=== PATIENT | male | born 1980 ===

== ENCOUNTER 2023-01-17 20:57 | Emergency (ER) | payer OTHER, SELFPAY ==
--- NOTE | 2023-01-17 21:00 | RT.EKG_ITS ---
APPROVED REPORT Exam: Resting ECG Reason for Exam: HIGH BP Patient Location: E HR:68 bpm ECG Measurements Heart Rate 68 AXIS AZ 158 P 52 QRSd 101 QRS 29 QT 415 T 14 QTc 440 Conclusion Sinus rhythm...normal P axis, V-rate 60- 99 Physician: no stemi
[2023-01-17 21:12] VITALS: BP 178/98; PULSE 89; RESP 20; TEMP 37.1; O2SAT 98
[2023-01-17] MEDS: Lisinopril 10 MG TAB PO ×2 (21:53→22:20)
[2023-01-17 21:56] VITALS: BP 160/89; PULSE 68; PULSE 69; RESP 23
[2023-01-17 21:57] VITALS: PULSE 67; RESP 21
[2023-01-17 22:00] VITALS: BP 151/89; PULSE 67; PULSE 68; RESP 16
[2023-01-17 22:01] VITALS: PULSE 69; RESP 19
--- NOTE | 2023-01-17 22:04 | W.ED.GENAD ---
Discharge Plan Disposition Patient Disposition: Home Condition: Good Discharge Details Clinical Impression: Hypertension Primary Care Provider: Unknown,Unknown ED Provider: Sebastian Estrada Home Meds and New Rx's Prescriptions: New lisinopril 10 mg tablet 10 mg PO DAILY Qty: 30 0RF Discharge Instructions Instructions: Hypertension (ED) Additional Instructions: At this time your EKG is very stable and shows no signs of significant heart abnormality. Please take the lisinopril as directed. Please follow-up closely with your primary care provider for reassessment of your blood pressure on this medication. If you notice any worsening of your symptoms, or any new symptoms such as vomiting, diarrhea, fever, chills, shortness of breath, chest pain, numbness, weakness, or fainting , please return immediately to the emergency department for reevaluation. Please follow up with your primary care provider as soon as possible for reassessment and reevaluation. As always, it was a pleasure participating in your medical care today. Discharge Data Discharge Date/Time-TO BE ENTERED AT DEPARTURE: 01/18/23 00:09 Medical Decision Making 42-year-old male with no significant past medical history presents today for hypertension. Patient states that for the last month or 2 he has had an increase in his blood pressure. He has also been gaining weight as of late and prescribed exercising over the last year. He did see his primary care provider which noticed that his blood pressure was high then, but they did not start on antihypertensive right away. He states that today he again did not feel very well, he felt a bit more tired than normal, he checked his blood pressure and throughout the entire day it remained in the 160s systolic. They are currently visiting from [place]. He came to the ER for further assessment. He denies any chest pain, shortness of breath, vision changes, numbness, tingling or weakness. He denies any history in his first-degree relatives of stroke or heart attack or brain tumor. He denies any atypical smells. No other complaints at this time. No other modifying factors. Physical exam demonstrates a notably well-appearing male, no neurologic deficits. No evidence of nuchal rigidity. No focal neurologic deficits to suggest acute intracranial etiology. No meningeal signs. No family history of brain tumors. No evidence of trauma. Initial blood pressure was slightly high at 178/98. However patient is certainly not in the realm of a hypertensive emergency whatsoever at this time. Patient is otherwise asymptomatic clinically. We did have a long discussion about work-up, imaging, laboratory assessment. Patient did state that he had a full set of laboratory work-up performed 5 days ago at his primary care provider's office. He did allow me to review this data, and his metabolic panel, CBC, hemoglobin A1c, lipid panel was reviewed. Aside for his cholesterol being elevated his labs are otherwise well within normal limits. Patient through shared decision-making process declined any additional blood work today. I did discuss EKG, she did agree to an EKG here, which was performed and was notably benign/unremarkable. With rest alone the patient's blood pressure came down to 150/89. He continues to feel well. Symptoms at this time are clinically inconsistent with ACS/STEMI, stroke, or brain tumor, pheochromocytoma, or other significant acute life-threatening etiology at this time. I did have a long discussion with the patient regarding risks and benefits of starting an antihypertensive medication, especially as I am not his primary care provider. However after long discussion patient elected to start with an antihypertensive now. We will start with lisinopril 10 mg daily. His renal function was excellent on review of his labs. Will recommend close follow-up with his primary care provider as soon as he gets back to visits. Discussed red flags for which to return. I have extensively reviewed the treatment plan and discharge instructions with the patient. I have addressed all patient concerns at this time. The patient was made aware of what symptoms to monitor for that would warrant a return to the emergency department. Discussed the plan with the patient, they demonstrate verbal understanding and agreement with our assessment and plan at this time. The documentation in this chart was dictated using [employer] dictation software. Please excuse any dictation errors. HPI General Date/Time Provider Initiated Documentation: 01/17/23 21:33. HPI Narrative: 42-year-old male with no significant past medical history presents today for hypertension. Patient states that for the last month or 2 he has had an increase in his blood pressure. He has also been gaining weight as of late and prescribed exercising over the last year. He did see his primary care provider which noticed that his blood pressure was high then, but they did not start on antihypertensive right away. He states that today he again did not feel very well, he felt a bit more tired than normal, he checked his blood pressure and throughout the entire day it remained in the 160s systolic. They are currently visiting from [place]. He came to the ER for further assessment. He denies any chest pain, shortness of breath, vision changes, numbness, tingling or weakness. He denies any history in his first-degree relatives of stroke or heart attack or brain tumor. He denies any atypical smells. No other complaints at this time. No other modifying factors. Related Data Home Medications Medication Instructions Recorded Confirmed lisinopril 10 mg tablet 10 mg PO DAILY #30 tabs 01/17/23 Previous Rx's Medication Instructions Recorded lisinopril 10 mg tablet 10 mg PO DAILY #30 tabs 01/17/23 Allergies Allergy/AdvReac Type Severity Reaction Status Date / Time No Known Allergies Allergy Unverified 01/17/23 21:27 General Stated Complaint: Headache GERARD: 3 Review of Systems All systems reviewed & are unremarkable except as noted in HPI and below PFSH All Active Problems Hypertension (Chronic) Social History Smoking/Tobacco Use Status: Never Smoking risk assessment performed?: Yes Do you feel safe at home: Yes Do you feel safe in your relationship?: Yes Exam Narrative Exam Narrative: 1.Const: Well-nourished, Well-developed, appearing stated age 2.Eyes: PERRL, no conjunctival injection, and symmetrical lids. 3.ENT: Atraumatic external nose and ears. Moist MM. Neck: Symmetric, trachea midline, No thyromegaly. 4.CVS: +S1/S2, No murmurs or gallops. Peripheral pulses 2+ and equal in all extremities. Brisk capillary refill in all extremities. 5.RESP: Unlabored respiratory effort. Clear to auscultation bilaterally. No wheezes rales or rhonchi 6.GI: Soft, Nontender/Nondistended, No hepatosplenomegaly. No guarding or rebound. 7.MSK: Normocephalic/Atraumatic, Extremities w/o deformity or ttp No cyanosis or clubbing, Normal movement of all extremities 8.Skin: Warm, Dry. No rashes or lesions. 9.Neuro: special education aide II-XII grossly intact. Sensation grossly intact, no focal neurologic deficits. All 6 cardinal planes of vision are fully intact. No evidence of rotatory or vertical nystagmus. The patient demonstrated a normal [id number], good dexterity. There was no evidence of dysdiadochokinesia. Patient was able to ambulate without difficulty. There was no wide-based gait. Romberg testing was normal. Lmvy-ja-[id number] testing was normal. Sensation was intact bilaterally as well as muscle strength bilaterally for all extremities. Patient was able to verbalize butter cup with no slurring, or miss pronunciation. 10.Psych: (AAO) x3. Appropriate mood and affect Course Vital Signs Vital signs: Vital Signs Temperature 37.1 C 01/17/23 21:12 Pulse 89 01/17/23 21:12 Respiratory Rate 20 01/17/23 21:12 Blood Pressure 178/98 H 01/17/23 21:12 Pulse Oximetry 98 01/17/23 21:12 Temperature 37.1 C 01/17/23 21:12 Temperature Source Oral 01/17/23 21:12 Pulse 89 01/17/23 21:12 Respiratory Rate 20 01/17/23 21:12 Respiratory Effort Normal 01/17/23 21:16 Blood Pressure 178/98 H 01/17/23 21:12 Blood Pressure Position Sitting 01/17/23 21:12 Pulse Oximetry 98 01/17/23 21:12 Oxygen Delivery Method Room Air 01/17/23 21:12 Oxygen Flow Rate 0 01/17/23 21:12 Pain Level 4 01/17/23 21:15 PAWSS Have you Been Recently Intoxicated or Drunk Within the Last 30 days?: No Have you Ever Experienced Previous Episodes of Alcohol Withdrawal?: No Have you ever Experienced Withdrawal Seizures?: No Have you ever Experienced Delirium Tremens(DT)s?: No Have you ever undergone Alcohol Rehabilitation Treatment (i.e, inpt ot outpatient treatment programs)?: No Have you ever Experienced Blackouts?: No Have you ever Combined Alcohol with other Downers within the last 90 days?: No Have you ever Combined Alcohol with any other Substance of Abuse during the last 90 days?: No Positive Blood Alcohol level on Presentation? [PCS.BAL]: No Evidence of Increased Autonomic Activity (i.e. HR>120, tremor, sweating, agitation, nausea)?: No Result: 0
[2023-01-17 22:15] VITALS: BP 151/89; PULSE 67; RESP 19; TEMP 37.1; O2SAT 98
== END 2023-01-18 00:09 | disposition home or self-care (01) ==
PROVIDERS: Emergency Provider Student in an Organized Health Care Education/Training Program
DX: I10 Essential (primary) hypertension (principal)
CPT/HCPCS: 93005; 99283; 93010